=== PATIENT | male | born 1990 | race Caucasian/White ===

== ENCOUNTER 2017-12-30 11:57 | Emergency (ER) | payer OTHER ==
[2017-12-30] MEDS: DERMABOND TOPICAL SKIN ADHESIVE TOP (15:15)
== END 2017-12-30 15:47 | disposition home or self-care (01) ==
LOC: M ED 11:57
DX: S01.312A Laceration without foreign body of left ear, initial encounter (principal); W00.0XXA Fall on same level due to ice and snow, initial encounter; Y92.139 Unspecified place military base as the place of occurrence of the external cause; Y99.1 Military activity; F17.210 Nicotine dependence, cigarettes, uncomplicated
CPT/HCPCS: 12011

== ENCOUNTER 2019-12-24 10:38 | Emergency (ER) | payer OTHER ==
[~2019-12-24] VITALS: Ht 182.9 cm; Wt 88.6 kg
[2019-12-24] MEDS ORDERED: NS 1,000 ML IV ONE (10:45)
[2019-12-24 11:22] LABS: HEMATOCRIT 49.8 % (42.0-52.0); HEMOGLOBIN 16.3 g/dl (13.5-17.5); MEAN CORPUSCULAR HEMOGLOBIN 32.1 pg (27.0-33.0); MEAN CORPUSCULAR HGB CONC 32.7 g/dl (32.0-36.5); MEAN CORPUSCULAR VOLUME 98.2 fl (80.0-96.0); PLATELET COUNT, AUTOMATED 248 10^3/uL (150-450); RED BLOOD COUNT 5.07 10^6/uL (4.30-6.10); WHITE BLOOD COUNT 6.5 10^3/uL (4.0-10.0)
[2019-12-24 11:47] LABS: AMPHETAMINES LEVEL URINE NEGATIVE (NEGATIVE); BARBITURATES URINE NEGATIVE (NEGATIVE); BENZODIAZEPINES URINE NEGATIVE (NEGATIVE); CANNABINOIDS URINE NEGATIVE (NEGATIVE); COCAINE METABOLITE URINE NEGATIVE (NEGATIVE); METHADONE URINE NEGATIVE (NEGATIVE); OPIATES URINE NEGATIVE (NEGATIVE); PHENCYCLIDINE URINE NEGATIVE (NEGATIVE)
[2019-12-24 11:58] LABS: ACETAMINOPHEN LEVEL < 2.0 UG/ML (10.0-30.0); ALBUMIN 4.8 GM/DL (3.2-5.2); ALT/SGPT 157 U/L (12-78); BILIRUBIN,DIRECT 0.2 MG/DL (0.0-0.2); BILIRUBIN,TOTAL 0.5 MG/DL (0.2-1.0); BLOOD UREA NITROGEN 5 MG/DL (7-18); CARBON DIOXIDE LEVEL 31 MEQ/L (21-32); CHLORIDE LEVEL 106 MEQ/L (98-107); CREATININE FOR GFR 0.94 MG/DL (0.70-1.30); ETHYL ALCOHOL (ETHANOL) 0.297 % (0.000-0.010); GLOMERULAR FILTRATION RATE > 60.0 (>60); GLUCOSE, FASTING 82 MG/DL (70-100); LIPASE 123 U/L (73-393); MAGNESIUM LEVEL 2.2 MG/DL (1.8-2.4); POTASSIUM SERUM 4.2 MEQ/L (3.5-5.1); SALICYLATE LEVEL 3.7 MG/DL (5.0-30.0); SODIUM LEVEL 143 MEQ/L (136-145)
--- NOTE | 2019-12-24 12:59 | REP ---
Abdominal right upper quadrant ultrasound, stat request for right upper quadrant pain: There is no cholelithiasis, gallbladder wall thickening or pericholecystic fluid. There is no intrahepatic or extrahepatic biliary duct dilatation. The common biliary duct measures 3 mm in diameter. The hepatic parenchyma is echogenic compatible with hepato steatosis/diffuse hepatocellular disease. 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 The Doppler direction of flow in the main portal vein is hepato petal, towards the liver. The visualized portions of the pancreas are unremarkable. Repair portions of the pancreas are obscured by bowel gas. The right kidney measures 11.2 x 5.2 x 4.0 cm. There is no right renal calculus or hydronephrosis. There is no right renal dominant mass or cyst. There is no right upper quadrant free fluid. Impression: There is no cholelithiasis. There is no ultrasound evidence of acute cholecystitis. There is no biliary duct dilatation. There is hepato steatosis. The portal vein is dilated, however, Doppler direction of flow in the portal vein is toward the liver. Electronically Signed by Salazar Schultz MD 12/24/2019 12:51 P
[2019-12-24] MEDS ORDERED: OXAZEPAM 15 MG CAP PO ONE (16:45)
[2019-12-25] MEDS ORDERED: LORazepam 2 MG TAB PO STA (07:27)
[2019-12-25] MEDS ORDERED: LORazepam 2 MG TAB PO PRN (07:30)
[2019-12-25] MEDS ORDERED: FOLIC ACID 1 MG TAB PO SCH (09:00)
[2019-12-25] MEDS ORDERED: THIAMINE 100 MG TAB PO SCH (09:00)
[2019-12-25] MEDS ORDERED: MULTIVITAMINS/MINERALS THERAP 1 TAB PO SCH (09:00)
[2019-12-25 10:40] VITALS: BP 155/90
--- NOTE | 2019-12-25 13:25 | ECGEPIP ---
[facility] - ED Test Date: 2019-12-24 Pat Name: DAVIS MEDRANO Department: Room: - Gender: Male Pediatrician: HOWIE : 1990 Requested By: Bharati Newton Order Number: [id number] Reading MD: Bharati Newton Measurements Intervals [place] Rate: 73 P: 56 WY: 161 QRS: 90 QRSD: 93 T: 47 QT: 400 QTc: 441 Interpretive Statements SINUS RHYTHM NO PRIOR Electronically Signed on 12-25-2019 13:25:22 EST by Bharati Newton
--- NOTE | 2019-12-28 15:25 | ED PDOC ---
Post-Departure Follow-Up ft grecia diaz faxed formal report of liver us for fu Jc Kim MD Dec 28, 2019 15:25
== END 2019-12-25 10:43 | disposition short-term general hospital (02) ==
LOC: M ED 10:38
DX: R45.851 Suicidal ideations (principal); F17.210 Nicotine dependence, cigarettes, uncomplicated
CPT/HCPCS: 36415; 76705; 80048; 80076; 80307; 83690; 83735; 84443; 85027; 93005; 99285; G0480

== ENCOUNTER 2020-01-12 18:45 | Emergency (ER) | payer OTHER ==
[~2020-01-12] VITALS: Ht 182.9 cm; Wt 88.6 kg
[2020-01-12] MEDS ORDERED: HYDR-3363 PO (18:52)
[2020-01-12] MEDS ORDERED: LEXA1TAB PO (18:52)
[2020-01-12 19:58] VITALS: BP 149/93
== END 2020-01-12 20:11 | disposition home or self-care (01) ==
LOC: EDBD 18:45 → M ED 18:45
DX: F10.20 Alcohol dependence, uncomplicated (principal); F17.210 Nicotine dependence, cigarettes, uncomplicated